=== PATIENT | male | born 1965 | race American Indian/Alaskan Native ===

== ENCOUNTER 2017-02-09 16:02 | Emergency (ER) | payer MEDICAID ==
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
[2017-02-09] MEDS ORDERED: IPRATROPIUM/ALBUTEROL 3 ML DEYVIAL IH ONE (16:48)
[2017-02-09] MEDS ORDERED: CEPACOL LOZENGE PO ONE (17:31)
[2017-02-09 18:20] VITALS: BP 145/92; PULSE 99; RESP 16; TEMP 98.4; O2SAT 92
== END 2017-02-09 18:20 | disposition home or self-care (01) ==
DX: J20.9 Acute bronchitis, unspecified (principal); F17.200 Nicotine dependence, unspecified, uncomplicated

== ENCOUNTER 2018-08-16 12:21 | Emergency (ER) | payer MEDICAID ==
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
[2018-08-16 14:00] LABS: PLATELET COUNT 174 10^3/uL (150-400)
[2018-08-16 14:12] LABS: INR 0.98 (0.83-1.16); PROTIME(PATIENT) 13.2 SEC (12.0-15.0)
[2018-08-16] MEDS ORDERED: GADOBUTROL 10 ML VIAL IVP ONE (14:25)
[2018-08-16] MEDS ORDERED: LIDOCAINE 1% 300 MG/30 ML SDV ONE (14:45)
[2018-08-16 15:44] VITALS: BP 140/90
== END 2018-08-16 15:42 | disposition home or self-care (01) ==
DX: R51 Headache (principal); B20 Human immunodeficiency virus [HIV] disease; Z87.820 Personal history of traumatic brain injury
CPT/HCPCS: A9585